=== PATIENT | female | born 1965 | race Caucasian/White ===

== ENCOUNTER 2020-02-07 00:50 | Outpatient (CLI) | payer OTHER, SELFPAY ==
[2020-02-08 13:59] LABS: SARS-CoV-2 RNA PCR Negative
== END 2020-02-07 00:51 | disposition home or self-care (01) ==
LOC: ANHCOVIDDT 00:50
PROVIDERS: Visit Provider Urology
DX: Z01.818 Encounter for other preprocedural examination (principal); Z11.59 Encounter for screening for other viral diseases
CPT/HCPCS: 87635; C9803; U0003

== ENCOUNTER 2020-02-09 03:33 | Day surgery (SDC) | payer OTHER, SELFPAY ==
[2020-01-29 09:13] VITALS: BMI 32.5
--- NOTE | 2020-02-09 07:28 | WPDHPUPDATE1 ---
History and Physical Update Update Date/Time: 02/09/20 07:28 History and Physical has been reviewed, including an updated exam of the patient. There are NO changes in the patient's condition. Risks, benefits, and alternatives have been discussed and questions answered. Patient agrees to proceed with procedure.
[2020-02-09 07:36] VITALS: BP 146/84; PULSE 83; RESP 18; TEMP 36.7; O2SAT 98
[2020-02-09] MEDS: LACTATED RINGERS 1,000 ML 30 ML IV CONT (07:55)
--- NOTE | 2020-02-09 07:59 | WPDHPUPDATE1 ---
History and Physical Update Update Date/Time: 02/09/20 07:59 History and Physical has been reviewed, including an updated exam of the patient. There are NO changes in the patient's condition. Risks, benefits, and alternatives have been discussed and questions answered. Patient agrees to proceed with procedure.
--- NOTE | 2020-02-09 08:06 | WPDANESEPPF ---
Anes - Initial Pre Proc Eval Procedure: Operation Date: 02/09/20 08:15 Proposed Procedures p Cystoscopy - Kwame Flanagan MD s Interstim Phase Two Battery Replacement - Kwame Flanagan MD Date/Time: 02/09/20 08:06 Surgeon: Kwame Flanagan MD Pre Op Diagnosis: Over Active Bladder Patient Data Age: 54 Gender: F Height: 5 ft 5 in Weight: 88.8 kg Last Vital Signs Temp 98.1 F 02/09/20 07:36 Pulse 83 02/09/20 07:36 Resp 18 02/09/20 07:36 BP 146/84 H 02/09/20 07:36 Pulse Ox 98 02/09/20 07:36 Allergies Allergy/AdvReac Type Severity Reaction Status Date / Time iodine Allergy Unknown TOPICAL Verified 01/29/20 09:14 SWELLING AND BURNING cefuroxime Allergy Swelling Verified 01/29/20 09:15 Home Medications Medication Instructions Recorded Confirmed Type amlodipine 5 mg PO QNOON 01/29/20 01/29/20 History calcium polycarbophil [FiberCon] 625 mg PO DIRECTED PRN 01/29/20 01/29/20 History loratadine 10 mg PO QNOON 01/29/20 01/29/20 History losartan-hydrochlorothiazide 1 tablet PO QNOON 01/29/20 01/29/20 History montelukast 10 mg PO QNOON 01/29/20 01/29/20 History multivitamin 1 tablet PO QNOON 01/29/20 01/29/20 History potassium chloride 20 meq PO QNOON 01/29/20 01/29/20 History Patient hx anesthesia problems: none Family hx anesthesia problems: none [facility] Past Medical History Medical History (Updated 02/09/20 @ 08:06 by Isaac Camp MD) Bronchitis only when URI Depression Hypertension Social History Social History Smoking status: Never smoker Spiritual care concerns: No Anes - Eval Final PreProcedure Day of Procedure 02/09/20 08:06 Patient weight: overweight Heart: regular rate and rhythm Lungs: clear to auscultation Airway: Mallampati scale class II Neurological: alert and oriented Last oral intake: >/= 8 hours ASA classification: II Emergent: no Anesthetic plan: proceed Anesthesia type and monitoring: general GIVS (LMA if needed) and standard monitoring Informed Consent: The patient's anesthetic plan and its attendant risks and benefits were discussed with the patient/family/POA. Questions were solicited and answers provided to the satisfaction of the patient/family/POA.
[2020-02-09] MEDS: levoFLOXacin 500 MG/D5W 100 ML 500 MG/100 ML BAG 100 MG IVPB (08:14)
[2020-02-09] MEDS: BUPIVACAINE/EPINEPHRINE 0.25% 50 ML VIAL 10 ML INFILTRATE (08:27)
[2020-02-09] MEDS: KETOROLAC 30 MG/ML VIAL (*BKC) IM (08:28)
[2020-02-09] MEDS: LIDOCAINE HCL 2% GEL UROJET 10 ML PKG MUCOUS MEM (08:38)
[2020-02-09 08:45] VITALS: BP 122/69; PULSE 88; RESP 20; O2SAT 98
--- NOTE | 2020-02-09 08:46 | PM.PROC ---
Procedure Note - Detailed Date of procedure: 02/09/20 Pre-op diagnosis: Over Active Bladder Post-op diagnosis: same Procedure performed: Replacement of InterStim battery. [address] [address]ystoscopy. [address] Description of procedure: She has quickly identified informed consent obtained. She from the operating room. She was given mac anesthesia. She was placed in a prone position. The lower back and buttock were prepped and draped in a sterile fashion. Time-out performed. I anesthetized the skin over the pulse generator. I incised the skin. I located the pulse generator. I explained that. I placed the new pulse generator. I tightened down the boat. I placed the new pulse generator pocket. Impedances were checked and found to be normal. It was programmed. I then irrigated all the wounds. I closed the subcu tissue with 2 Vicryl. The skin with Rosario Vicryl. Glue was applied. She was then repositioned in the frog-leg position. I prepped genitalia the standard fashion. I performed cystoscopy. Her bladder was examined. There is no tumors, stones, trabeculations, red patches, or foreign bodies. Ureteral orifices are normal. I placed a Uro jet. She was awakened and transferred to the PACU in stable condition. Anesthesia: MAC Surgeon: Kwame Flanagan MD Estimated blood loss (mL): 2 Drains: No Packing: No Pathology: none sent Complications: No immediate complications Condition: stable Disposition: PACU
[2020-02-09 09:15] VITALS: BP 131/67; PULSE 76; RESP 20
[2020-02-09 09:45] VITALS: BP 131/78; PULSE 75; RESP 18
== END 2020-02-09 09:55 | disposition home or self-care (01) ==
PROVIDERS: PCP Family Medicine; Visit Provider Urology
PROC: (CPT 64590; principal; 2020-02-09 08:15)
PROC: (CPT 52352; 2020-02-09 08:15)
DX: Z45.42 Encounter for adjustment and management of neurostimulator (principal); N32.81 Overactive bladder; Z87.440 Personal history of urinary (tract) infections; I10 Essential (primary) hypertension; F32.9 Major depressive disorder, single episode, unspecified
CPT/HCPCS: 64590; 52000; A9270; C1767; C1787; J1100; J1885; J1956; J2250; J2405; J2704; J3010; J7030; J7120